=== PATIENT | female | born 1980 | race Caucasian/White ===

== ENCOUNTER 2018-09-25 06:31 | Day surgery (SDC) | payer OTHER ==
[~2018-09-25] VITALS: Ht 167.6 cm; Wt 62.6 kg
[2018-09-25] MEDS ORDERED: BUPIVAC MPF-EPI 0.5%-1:200000 30 ML VIAL. ONE (06:56)
[2018-09-25] MEDS ORDERED: IOHEXOL 300 MG/ML 100ML VIAL. ONE (06:57)
[2018-09-25] MEDS ORDERED: MORPHINE SULFATE 4 MG/ML VIAL. IV PRN (07:00)
[2018-09-25] MEDS ORDERED: fentaNYL PF VIAL 100 MCG/2 ML VIAL IV PRN (07:00)
[2018-09-25] MEDS ORDERED: IV RINGERS,LACTATED 1000ML 1,000 ML IV SCH (07:00)
[2018-09-25] MEDS ORDERED: LIDOCAINE 1% PF 2 ML VIAL. ID PRN (07:00)
[2018-09-25] MEDS ORDERED: HYDROmorphone 2 MG/ML VIAL IV PRN (07:00)
[2018-09-25] MEDS ORDERED: PROCHLORPERAZINE 10 MG/2 ML VIAL. IV PRN (07:00)
[2018-09-25] MEDS ORDERED: ONDANSETRON PF 4 MG/2 ML VIAL. IV PRN (07:00)
[2018-09-25] MEDS ORDERED: MULT1TAB52 PO (07:07)
[2018-09-25] MEDS ORDERED: OMEG-155 PO (07:08)
[2018-09-25] MEDS ORDERED: LORA10TA68 PO (07:08)
[2018-09-25 07:09] LABS: U PREG PATIENT NEGATIVE (NEG)
[2018-09-25] MEDS ORDERED: fentaNYL PF VIAL 100 MCG/2 ML VIAL ONE (07:13)
[2018-09-25] MEDS ORDERED: ROCURONIUM 50 MG/5 ML VIAL. ONE (07:13)
[2018-09-25] MEDS ORDERED: MIDAZOLAM HCL/PF 2 MG/2 ML VIAL. ONE (07:13)
[2018-09-25] MEDS ORDERED: LIDOCAINE 2% PF 5 ML VIAL. ONE (07:14)
[2018-09-25] MEDS ORDERED: PROPOFOL 20 ML IV ONE (07:14)
[2018-09-25] MEDS ORDERED: FAMOTIDINE 20 MG/2 ML VIAL ONE (07:14)
[2018-09-25] MEDS ORDERED: ONDANSETRON PF 4 MG/2 ML VIAL. ONE (07:14)
[2018-09-25] MEDS ORDERED: GLYCOPYRROLATE 1 MG/5 ML VIAL. ONE (08:32)
[2018-09-25] MEDS ORDERED: NEOSTIGMINE 10 MG/10 ML VIAL. ONE (08:32)
[2018-09-25] MEDS ORDERED: SEVOFLURANE 31 TO 60 MINUTES. IH ONE (08:38)
--- NOTE | 2018-09-25 08:51 | PDOC4 ---
Operative Note Operative Note Date: 09/25/2018 Preoperative diagnosis: Biliary dyskinesia Postoperative diagnosis: Same Procedure: Laparoscopic cholecystectomy Surgeon: Leopoldo Specimen: Gallbladder Dictation: Patient is a 38-year-old female has had right upper quadrant abdominal pain postprandial nausea HIDA scan showed abnormal ejection fraction. Procedure of laparoscopic cholecystectomy was explained to the patient in detail risk benefits were also discussed including bleeding and infection alternatives to this procedure also discussed with the patient is seemed to understand gave verbal and written consent to have the procedure performed. Patient was taken to the operating room placed in supine position general anesthesia was initiated once patient was sleeping and intubated her abdomen was prepped and draped usual sterile fashion using ChloraPrep. Area just below the umbilicus was injected with quarter percent Marcaine with epinephrine incision was made 11 scalpel Veress needle was placed within the abdomen creating pneumoperitoneum once this was complete 11 OmegaPort was placed and a 5 mm camera was placed within the abdomen which was inspected no other abnormalities were noted. 5 mm port was placed in the epigastrium and two 5 mm ports were placed in the left upper quadrant the dome of the gallbladder was grasped retracted cephalad the infundibulum of the gallbladder was grasped and retracted laterally exposing the triangle. The adherent tissues of the triangle are taken down bluntly dissected exposing the cystic duct and cystic artery both were doubly clipped and transected the gallbladder was taken off the liver with hook electrocautery placed in Endo Catch bag and removed from the umbilicus right upper quadrant was irrigated and suctioned dry hemostasis deemed to be appropriate and the pneumoperitoneum was reduced all ports removed the fascial defect at the umbilicus closed [id number] Vicryl suture and the skin was approximate all port sites for septic Monocryl Mastisol Steri- Strips and Band-Aids were applied as dressings. Patient was awakened and extubated in the operating room taken to recovery in stable condition all sponge instrument needle counts listed as correct estimated blood loss 5 mL LAURO ENGLISH MD Sep 25, 2018 08:51
--- NOTE | 2018-09-25 08:52 | DISCH ---
DISCHARGE INSTRUCTIONS Condition on Discharge Condition on Discharge: Stable Activity After Discharge Activity Instructions for Disc: Avoid exertion Other activity instructions: no lifting more than 20 pounds for 2 weeks Diet after Discharge Diet after Discharge: Low Fat Wound Incision Care Other wound/incision instructi: May shower in 24 hours Contacting the after DC Call your doctor for: If your condition worsens Follow-Up Follow up with: Dr. English in 2 weeks LAURO ENGLISH MD Sep 25, 2018 08:52
[2018-09-25] MEDS: fentaNYL PF VIAL 100 MCG/2 ML VIAL IV PRN ×2 (09:34→09:53)
[2018-09-25] MEDS ORDERED: oxyCODONE/APAP 5/325 1 TAB TABLET PO ONE (09:45)
[2018-09-25 10:28] VITALS: BP 112/62
--- NOTE | 2018-09-27 12:08 | PATHOLOGY ---
[facility] Accession Number: [id number] . 01 Material submitted: . GALLBLADDER . 01 Clinical history: . Biliary dyskinesia. . 02 Diagnosis: Gallbladder, cholecystectomy: - Chronic cholecystitis, mild. - No gallstones present. (SKM/db; 09/26/2018) LBQ/09/26/2018 . 02 Electronically signed: . Vladimir Araujo MD, Pathologist NPI- [id number] . 01 Gross description: . Received in formalin labeled "Acred, Nicolle, gallbladder" is an 8.2 x 3.7 x 2.5 cm intact gallbladder with stephenson-green smooth serosal surfaces. Opening the gallbladder reveal dark green velvety mucosa and an average wall thickness of 0.2 cm. Calculi are not present and no masses are noted grossly. Director Food Safety sections from the body and fundus are submitted along with the proximal margin in cassette A1. ([facility] [place]; 09/25/2018) SYC/SYC . 02 Pathologist provided ICD-10: K80.10 . 02 CPT . 395604 Specimen Comment: A courtesy copy of this report has been sent to Specimen Comment: [phone]. Specimen Comment: Report sent to Specimen Comment: A duplicate report has been generated due to demographic updates. Performed at: [address] [facility] [address], [place] [id number] MD Michael Cox MD Phone: [phone] Performed at: 02 [facility] [address], [place] [id number] MD Kam Bernardo MD Phone: [phone]
== END 2018-09-25 10:35 | disposition home or self-care (01) ==
LOC: SURG 06:31
PROVIDERS: ATTEND Surgery
DX: K81.1 Chronic cholecystitis (principal); K58.9 Irritable bowel syndrome, unspecified; Z98.890 Other specified postprocedural states; Z79.899 Other long term (current) drug therapy; Z83.71 Family history of colonic polyps; Z82.49 Family history of ischemic heart disease and other diseases of the circulatory system; Z87.891 Personal history of nicotine dependence; Z72.89 Other problems related to lifestyle; Z86.19 Personal history of other infectious and parasitic diseases
CPT/HCPCS: 47562; 81025; A7015; J0696; J2001; J2250; J2405; J2704; J2710; J3010; J3490; J7030; 88304; Q9967